=== PATIENT | female | born 1930 ===

== ENCOUNTER 2017-03-03 23:04 | Inpatient (IN) | payer MEDICARE ==
[~2017-03-03] VITALS: Ht 152.4 cm; Wt 54.4 kg
--- NOTE | ~2017-03-03 | DS ---
[place], [place] DISCHARGE SUMMARY NAME: KIRAN PEREZ UNIT #: [id number] ROOM: 311 DOCTOR: BELKYS ANGELES MD BIRTHDATE: [birth year] DOS: 03/11/2017 ADDENDUM CHIEF COMPLAINT: "Oh good morning doctor, do I get to go today?" SUMMARY OF THE VISIT: The patient was interviewed in the dining area where she sat waiting for breakfast. She smiled on approach as I entered and engaged readily in conversation, reporting to me that she feels ready for discharge and is hoping she is able to go to [facility]. When I did tell her that it would most likely be [facility], she still nodded in approval and stated that at this point in her life she feels that she is best to go into a long-term care facility as she does not feel that her needs are going to be able to be met any longer at home. She convincingly denies medication side effects and voices a readiness to leave today. MENTAL STATUS AT DISCHARGE: The patient is alert and oriented to person, place and approximate to time. Mood does seem to have trended towards improvement and she is more euthymic. There is no amy or hypomania. There is no longer paranoia present. Short term memory has gaps, otherwise she is intact. FINAL DIAGNOSES: Major depression, recurrent with psychotic features and Alzheimer's dementia. PLAN: The patient will be discharged to [facility]. Her prescriptions have been printed. I will follow her upon her admission to [facility]. BELKYS ANGELES MD CM:DISCHARG [id number] BELKYS ANGELES MD 03/12/17 0128 interface
--- NOTE | ~2017-03-03 | PR ---
[place], [place] PROGRESS NOTE [id number] UNIT #: [id number] ROOM: 311 DOCTOR: BELKYS ANGELES MD BIRTHDATE: [birth year] DOS: 03/08/2017 CHIEF COMPLAINT: "Oh doctor when do I get to go to [facility]." SUMMARY OF THE VISIT: The patient was interviewed in the dining area where she was sitting eating her breakfast. She still was somewhat fretful but very quickly calmed down and was much calmer and more redirectable than she has been for her entire stay. When I discussed with her the possibility of going to [facility], she questioned me as to where it was and whether she would still be able to ultimately go to [facility]. She did report that she is sleeping better and does feel more like eating this morning, which again is in craft contrast to her previous visits. She seems to be tolerating the current medication regimen well and denies any medication side effects. MENTAL STATUS: She is alert and oriented to person, place and very approximate to time. Mood is strongly trending towards euthymia. Affect is much more appropriate. There is no amy or hypomania. There are no overt auditory or visual hallucinations. No delusions, no paranoia. Short term memory is poor, intermediate, and long-term are relatively intact. PLAN: I will increase her Namenda to 5 mg b.i.d. augmenting the effectiveness of the Exelon patch. We will continue to explore possible placement then to [facility]. Ultimately per her request, she would like to go to [facility]. I will follow her whether she goes to either of those places upon discharge. BELKYS ANGELES MD CM:PNTRANS 0858 BLEKYS ANGELES MD 03/08/1740 interface
--- NOTE | ~2017-03-03 | PR ---
[place], [place] PROGRESS NOTE NAME[id number] UNIT #: [id number] ROOM: 310 DOCTOR: BELKYS ANGELES MD BIRTHDATE: [birth year] DOS: 03/06/2017 CHIEF COMPLAINT: "I need help. I can't eat." SUMMARY OF THE VISIT: The patient was interviewed once again in the dining area where she sat in front of her full plate of breakfast. She was overwhelmed by the food and stated she could not eat and needed assistance. She does continue to exhibit extreme depression with anxiety and requires a great deal of support and redirection, but she did respond to positive redirection well. She did report improved sleep last night, but still seems to be rather fretful and anxious as the day progresses. There is no sedation or somnolence noted from the medicines themselves. MENTAL STATUS: She is alert and oriented to person, place, not necessarily to time. Mood still is rather depressed with anxious overtones. There is no symptom suggestive of amy or hypomania. She is also not verbalizing any paranoia and in fact quite the opposite states that she is sorry for all the things she has done to her son and ccunadby-de-ilk and realizes that her thoughts were negative and erroneous. She does continue to have processing difficulty and short term memory issues. PLAN: I will maintain her current dose of Remeron at 15 mg at bedtime. I will increase her Exelon patch from 4.6 mg daily to 9.5 mg daily trying to maximize potential benefit. I will consider augmenting this with Namenda in the future. We will continue to engage her in individual and clay milieu activity. We will explore the possibility of placement at [facility] per her request and discharge then when psychiatrically stable. BELKYS ANGELES MD CM:PNTRANS [id number] BELKYS ANGELES MD 03/06/17 1035 interface
--- NOTE | ~2017-03-03 | DS ---
[place], [place] DISCHARGE SUMMARY NAME: [id number] UNIT #: [id number] ROOM: 311 DOCTOR: JOSELUIS THOMAS BIRTHDATE: [birth year] DOS: 03/09/2017 HISTORY OF PRESENT ILLNESS: This is an 86-year-old female who presented initially to [facility], brought there by her son due to increased paranoia, in particular felt that the son and tuioulds-jw-gcn were plotting to hurt her and take her money. Family states that similar behaviors have occurred in the past when she had a UTI. She was extremely labile, out of control, verbally and physically aggressive towards her son and threatening. She was transferred here for crisis stabilization to rule out organic factors, engage in individual and clay milieu therapy. PAST MEDICAL HISTORY: Includes dementia, glaucoma, major depression and possible bipolar disorder. HOSPITAL COURSE: Upon admission, we discontinued her Zyprexa and Depakote. 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 We started using Remeron to help with depression and sleep and start her on Exelon patch to help with her dementia. Medications were adjusted accordingly. Eventually, Namenda was added 5 mg b.i.d. currently. The goal is to eventually titrate her up to the full dose of 10 mg b.i.d. This will need to be done at the facility. She is on Remeron 15 mg at bedtime for depression. This low dose also has a histamine response, which helps with sleep and appetite stimulation. She is currently on Exelon patch 9.5 mg q.a.m. The goal would be to eventually titrate her up to the maximum dose of 13.3 mg every day and have this augmented with the Namenda as well. She is on vitamin E 400 international units q.a.m. and that is all medication smith. MENTAL STATUS: She is alert and oriented to person, place, approximate time. Mood is definitely euthymic. Affect is appropriate. She was aware that she was looking to be transferred today. There are no overt signs of auditory or visual hallucinations, delusions, paranoia, amy or hypomania. Short-term memory is poor. Long-term appears to be intact. PLAN: The patient is being discharged to be [facility]. Dr. Recinos has already printed her scripts. She would eventually like to be at [place] [facility], but my understanding is that there is no bed availability at this time. So plan is to be discharged again to [facility] in stable condition. Again, she is on Namenda 5 mg b.i.d. for dementia. The goal is for the facility to eventually titrate her up to the maximum dose of 10 mg b.i.d. Also for dementia she is on Exelon patch 9.5 mg q.a.m. This was increased on, looks like 01/06/2017. This should be eventually increased to 13.3 mg q.a.m. and she is on Remeron 15 mg at bedtime for major depression disorder, sleep and appetite stimulation. This is one of the facilities that Dr. Recinos and myself round at, so we can follow up with her as she is transferred into that facility or [facility]. The patient is being discharged in stable condition. ADDENDUM [place], [place] DISCHARGE SUMMARY NAME: KIRAN PEREZ UNIT #: [id number] ROOM: 311 DOCTOR: JOSELUIS THOMAS BIRTHDATE: [birth year] This is an addendum to my discharge summary on yesterday. SUMMARY OF VISIT: The patient was assessed in the dining room where she was waiting for breakfast this morning. She engaged in conversation. She immediately asked me why she was not discharged yesterday. I will have the social science professor follow up with her regarding this. MENTAL STATUS: Alert and oriented to person, place, approximate time. Mood is euthymic. She is frustrated. Affect is appropriate. No auditory or visual hallucinations, delusions, paranoia, amy or hypomania. Poor short-term memory. It appears that long-term memory is intact. PLAN: Again, the patient is to be discharged to [facility]. Dr. Recinos had printed off the scripts on Saturday. She did state that [facility], but understands that due to no bed availability [facility] is the next reasonable option. Please refer to my discharge plan under a plan for how to titrate her existing medications. JUAN FRANCISCO THOMAS CNP CM:JESS [id number] JOSELUIS THOMAS 03/11/17 0248 interface
--- NOTE | ~2017-03-03 | PR ---
[place], [place] PROGRESS NOTE [id number] UN[facility] #: [id number] ROOM: 310 DOCTOR: BELKYS ANGELES MD BIRTHDATE: [birth year] DOS: 03/07/2017 CHIEF COMPLAINT: "I am having trouble swallowing the meat loaf I ate at lunch, stuck in my throat all day long." SUMMARY OF THE VISIT: The patient was interviewed in the dining area. She was very anxious and fretful and called me over to talk to her repeatedly. She needs a great deal of support and redirection. She does appear very distraught and very anxious. She reports that she is having trouble swallowing, although she did pass an initial swallow eval yesterday. She is very fixated on her dentures not fitting properly and her mouth being very sore. She did not necessarily remember me from the previous visits and seemed very confused and disoriented. MENTAL STATUS: She is alert and oriented to person, place, but not necessarily time. Mood does still seem to be very depressed with anxious overtones. She is somatically preoccupied, but I see no hypomania or amy and likewise I see no overt auditory or visual hallucinations. She is not exhibiting the paranoia that was present upon admission. PLAN: I will go ahead and order a barium swallow to further followup her swallow issues. I will order her Burnett spray nasal mist for her complaint of a dry nose and also order zinc 220 mg orally in the morning to see if this improves her sense of taste. Because she is having an issue per her report of swallowing her pills, I will change her Remeron to the orally disintegrating tablet 15 mg at bedtime, so this aids in her ability to be compliant. I will also augment her Exelon patch with Namenda 5 mg daily to improve and maintain her ADLs, behaviors and cognition. At this point, we are looking at a possible admission to [facility]. Per her request, she would like to make this a permanent placement as she does not feel comfortable returning home with her family. BELKYS ANGELES MD CM:PNTRANS 0 BELKYS ANGELES MD 03/07/17 0930 interface
--- NOTE | ~2017-03-03 | WRIGHTHP ---
[place], [place] PATIENT HISTORY AND PHYSICAL EXAM NAME: KIRAN PEREZ UNIT #: [id number] ROOM: 310 DOCTOR: BELKYS ANGELES MD BIRTHDATE: [birth year] DOS: 03/05/2017 CHIEF COMPLAINT: "I wanted to go to [facility]. I cannot believe my son sent me here. I thought he was going to hurt me." HISTORY OF PRESENT ILLNESS: This is an 86-year-old white female who presented initially to [facility] emergency room. The patient was brought there by her son following increased paranoia. The patient felt that specifically her son and [id number]-wrb were plotting to hurt her and take her money. Similar behaviors have occurred when the patient has had a UTI. The patient though this time was extremely out of control and verbally and physically threatening to the son. The patient was eventually transferred here for crisis stabilization to rule out organic factors, to engage in individual and clay milieu activity and to find the least restrictive environment post-stabilization. PAST MEDICAL HISTORY: Remarkable for dementia, glaucoma, major depression and possible bipolar disorder. MENTAL STATUS: Upon admission, the patient is alert and oriented to person, place, and approximate to time. She does have some time gaps. Mood does seem to be depressed and she was on the verge of tears. She was very fretful and anxious. She did tend to be perseverative and did repeat herself frequently. She did openly admit to paranoia, but has the insight to be able to say that she realizes that this is not necessarily true. She does at times process slowly and does need to be reprompted. Short term memory does have gaps. DIAGNOSIS: Major depression, recurrent with psychotic features. Rule out Alzheimer dementia. PLAN: I will go ahead and discontinue her Zyprexa and Depakote. The patient had been on long-term Zyprexa and seems to have developed some mild tardive dyskinesia of her lips and tongue. At this point, I will utilize Remeron 15 mg at bedtime to treat the depressive component and start her on Exelon patch 4.6 mg a day. If clearing the UTI and treating the dementia works to decrease the accusatory behavior, I will attempt to avoid antipsychotics if at all possible. I will start her also on vitamin E 400 international units in the morning to attempt to help reverse some of the tardive dyskinesia. We will engage her in individual and clay milieu activity. We will also explore the possibility of placement at [facility] per her request. We will discharge then when psychiatrically stable. [place], [place] PATIENT HISTORY AND PHYSICAL EXAM NAME: KIRAN PEREZ UNIT #: [id number] ROOM: 310 DOCTOR: BELKYS ANGELES MD BIRTHDATE: [birth year] BELKYS ANGELES MD CM:HISPHYS:PATIENT HISTORY AND PHYSICAL EXAMINATION 4 53 BELKYS ANGELES MD 03/05/17 1052 interface
--- NOTE | ~2017-03-03 | PROC NOTE ---
[place], [place] PROCEDURE NOTE NAME: [id number] UNIT #: [id number] ROOM: 311 DOCTOR: ROCIO WALDEN BIRTHDATE: [birth year] DOS: MODIFIED BARIUM SWALLOW LOCATION: [address] [place] [address], room 310, bed 1. ORDERING PHYSICIAN: Dr. Recinos. RADIOLOGIST: Dr. Yanez. BACKGROUND INFORMATION: The patient an 86-year-old female who was seen for modified barium swallow. This test was ordered to view the pharyngeal phase of the swallow. This test was recommended following a bedside swallowing evaluation yesterday where the patient reported concern over meatloaf getting stuck in her throat during lunch yesterday. The patient was very anxious and upset over this and stated that she was not able to swallow anything solid no overt difficulty was displayed during bedside evaluation with the pureed food or thin liquids that she accepted. However, due to her continued feeling of globus, this study is being conducted. Medical history is significant for brief psychotic disorder, major depression, bipolar disorder, UTI, dementia and history of cancer of the genitourinary system. This patient receives a regular diet and thin liquids. Oral peripheral examination revealed presence of several bottom teeth only. Lingual, labial and buccal skills were within normal limits in terms of strength, range of motion and coordination. The patient was able to volitionally cough and swallow without difficulty. For this study, the patient was alert and cooperative, but displayed anxiety which increased during this encounter, encouragement and were provided throughout the study. METHODS AND MATERIALS USED FOR THE EXAM: The patient was positioned in the lateral plane and examination was viewed under fluoroscopy. The patient was presented with a variety of consistencies to assess swallowing skills including barium-coated cookie and bread presented in bite size pieces and thin liquid barium taken by cup. ORAL PHASE: Unremarkable. PHARYNGEAL PHASE: Unremarkable. ESOPHAGEAL PHASE: This phase of the swallow was not formally assessed during this examination. IMPRESSIONS AND RECOMMENDATIONS: Based upon assessment results, this 86-year-old patient presented with oral and pharyngeal swallowing skills that are within normal limits. Recommend the patient remain on regular diet and thin liquids. Follow up therapy is not warranted. Results and recommendations were shared with the patient and her nurse and they verbalized understanding. Thank you very much for this referral. Should you have any questions regarding this patient, please contact the speech pathologist at [phone]. [place], [place] PROCEDURE NOTE NAME: KIRAN PEREZ UNIT #: [id number] ROOM: [facility] DOCTOR: ROCIO WALDEN BIRTHDATE: [birth year] ROCIO WALDEN CM:PROCNOTE:PROCEDURE NOTE [id number] ROCIO WALDEN
[2017-03-04] MEDS ORDERED: BENADRYL ALLERG25 M5 PO (00:29)
[2017-03-04] MEDS ORDERED: TRAZODONE50 MG PO (00:30)
[2017-03-04] MEDS ORDERED: PRILOSEC20 M1 PO (00:31)
[2017-03-04] MEDS ORDERED: ZYPREXA10 M1 PO (00:32)
[2017-03-04] MEDS ORDERED: MACRODANTIN50 MG PO (00:33)
[2017-03-04] MEDS ORDERED: FLONASE ALLERG9.9 ML NAS (00:33)
[2017-03-04] MEDS ORDERED: TYLENOL325 M2 PO (00:34)
[2017-03-04 11:24] VITALS: BP 145/96
--- NOTE | 2017-03-04 11:30 | NUR ---
KIRAN PEREZ a 86 year old F admitted via ambulance from the ADMITTING as a emergency 72 hr. hold admission. Arrived on unit at 1130. ALLERGIES: .NKA Vital signs are: 98.5-69-18 145/96. The client signed the following forms with stated understanding: Authorization For The Release of Medical Information, Clothing List, Consent to Voluntary Admission and Hospitalization, Consent and Release Forms/Receipt of Rights, Acknowledgement of Advance Directive Information, Behavioral Health Consent Form, and Informed Consent of Medications. Admitted under the services of . PT IS LM SWIFT, PT BROGHT HER OWN CLOTHING, SHE HAS UPPER DENTURES, NO GLASSES, OR HEARING AIDS. PT HAS SOME INVOLUNTARY TONGUE MOVEMENT, DR. ANGELES AWARE. KARTHIK SIMONS,BELKYS. A search was conducted and hazardous articles were removed. Client was oriented to the unit. CONCEPCIÓN CROOKS
--- NOTE | 2017-03-04 12:15 | NUR ---
DR NG NOTIFIED OF NEW ADMSSION
[2017-03-04 12:56] LABS: BASO % 0.4 % (0.0-1.0); EOS # 0.1 10*3/uL (0.0-0.4); EOS % 1.3 % (1.0-4.0); HEMATOCRIT 40.2 % (37.0-47.0); HEMOGLOBIN 13.1 g/dl (12.0-16.0); LYMPH # 1.8 10*3/uL (1.3-4.4); MEAN CELL VOLUME 90.7 fl (81.0-99.0); MEAN CORPUSCULAR HGB 29.6 pg (27.0-31.0); MEAN CORPUSCULAR HGB CONC 32.6 g/dl (33.0-37.0); MEAN PLATELET VOLUME 10.4 fl (9.6-12.3); MONO # 0.5 10*3/uL (0.1-1.0); MONO % 6.5 % (3.0-9.0); NEUT # 4.8 10*3/uL (2.3-7.9); NEUT % 66.7 % (47.0-73.0); PLATELET COUNT AUTOMATED 199 10*3/uL (130-400); RED BLOOD COUNT 4.43 10*6/uL (4.10-5.10); RED CELL DISTRI WIDTH 12.9 % (0-14.5); WHITE BLOOD COUNT 7.1 10*3/uL (4.8-10.8)
--- NOTE | 2017-03-04 13:09 | NUR ---
DR CRAIG UP TO SEE PATIENT
[2017-03-04 13:13] LABS: ALBUMIN 3.5 gm/dl (3.1-4.5); ALKALINE PHOSPHATASE 40 U/L (45-117); BUN 13 mg/dl (7-24); CHLORIDE 103 mmol/L (98-107); CHOLESTEROL 212 mg/dL (<200); CREATININE 0.76 mg/dL (0.55-1.02); HDL CHOLESTEROL 71 mg/dl (40-60); LDL CHOLESTEROL 130 mg/dL (9-159); SGOT/AST 15 IU/L (3-35); SGPT/ALT 13 U/L (12-78); SODIUM 140 mmol/L (136-145); TRIGLYCERIDES 53 mg/dl (<150); VLDL CHOLESTEROL 11 mg/dL (6-40)
--- NOTE | 2017-03-04 13:14 | NUR ---
FAVIO DE LA CRUZ SIGNED THE PATIENT IN VOLUNTARY OVER THE PHONE CONSENT OTHER NURSE WITNESSED AND SIGNED CONSENT
[2017-03-04 13:19] LABS: VITAMIN D, 25-HYDROXY 35.7 ng/mL (30-100)
--- NOTE | 2017-03-04 15:09 | NUR ---
Social DIANA Patient did attend group as well as participated. Patient needed 1:1 and reported no issues during group
[2017-03-04 20:19] VITALS: BP 158/88
--- NOTE | 2017-03-04 21:35 | NUR ---
24 HR chart check completed.
--- NOTE | 2017-03-05 05:41 | NUR ---
PT HAS BEEN OBSERVED ON Q 15 MIN CHECKS & HAS SLEPT QUIETLY THROUGHOUT THE SHIFT PAST 2129.
[2017-03-05 08:00] VITALS: BP 143/78
--- NOTE | 2017-03-05 08:57 | NUR ---
TREATMENT TEAM WAS HELD WITH THE FOLLWOING: DR. ANGELES, RESIDENT, MEDICAL ROYAL, RNs, AT, SWs. DR. ANGELES STATED THAT PT WA WILLING TO GO TO [facility] FOR REHAB STAY. SW WILL SUBMIT PAASRR. DR. ANGELES SAID PT CAN SIGN IN.
--- NOTE | 2017-03-05 11:11 | NUR ---
Spoke with pt. son per pc who states that pt. has been in and out of facilities due to health and psychitric issues. He preferrs that referrals for d/c be sent to: [facility] and [facility]. He states that pt. has been to [facility] and [email or web address] and she is not to return there. Sw asked pt son to keep an open mind that it is possible that the facilities he stated may not take her due to her behaviors, and he states "let's start there". pt son will be in at 12:30pm for visitation and to bring his home clothes. .
--- NOTE | 2017-03-05 11:18 | NUR ---
Lisa faxed to [facility].
--- NOTE | 2017-03-05 12:00 | NUR ---
CARMENZA MARIN SHELTERED WORKSHOP EXECUTIVE DIRECTOR ON UNIT TO SEE PATIENT.
--- NOTE | 2017-03-05 13:33 | NUR ---
Exercise/Riddles&Games Patient did attend group this morning as well as participated. Patient showed no signs of hallucinations or voiced no suicidal ideations throughout group
--- NOTE | 2017-03-05 14:59 | NUR ---
Reminiscing and Puzzles Patient did attend group this afternoon as well as participated. Due to patient being "legaly Blind" she could see colors of the larger puzzle peices and assisst other patient on where she thought they were to go. Patient voiced no hallucinations or suicidal ideations while in group
--- NOTE | 2017-03-05 15:31 | NUR ---
PATIENT IS ALERT TO PERSON AND HANDS ON CARE. RESPIRATIONS ARE EASY, NON-LABORED ON ROOM AIR. LONG/SHORT TERM MEMORY DEIFICTS NOTED. MOOD IS DEPRESSED AND ANXIOUS AT TIMES. THOUGHT PROCESS IS CONFUSED. PREOCCUPIED WITH WORRYING ABOUT BREATHING. DENIES ANY HALLUCINATIONS, DELUSIONS, HI/SI OR PAIN. PATIENT INTERACTIVE WITH STAFF AND OTHER PATIENTS. PARTICIPATES IN GROUP ACTIVITIES. 1 PERSON ASSIST WITH ACTIVITIES OF DAILY LIVING. CONTINENT OF BOWEL AND BLADDER. 1 PERSON ASSIST WITH AMBULATTION DUE TO UNSTEADY GAIT. PATIENT HAS TARDIVE DYSKINESIA WITH PROTRUSION OF HER TONGUE. PATIENT COMPLAINING OF TONGUE PAIN DUE TO CONSTANT TONGUE MOVEMENT (LOOKS LIKE SHE IS CHEWING ON HER TONGUE) CARMENZA MARIN CNP NOTIFIED OF THIS. Q 15 MINUTE SAFETY CHECKS MAINTAINED. MEDICATION COMPLIANT WITH EDUCATION. MONITOR FOR HALLUCINATION AND REDIRECT NEEDED.
--- NOTE | 2017-03-05 16:11 | NUR ---
Shift chart check completed.
--- NOTE | 2017-03-05 17:14 | NUR ---
PATIENT CONSTANTLY RUBBING TONGUE ON BOTTOM TEETH CAUSING TONGUE TO HURT. PRN JEFF APPIED PRN FOR PAIN.
--- NOTE | 2017-03-05 17:23 | NUR ---
NABIL FROM [facility] ON UNIT TO COPLETE PASRR ASSESSMENT.
[2017-03-05 20:00] VITALS: BP 131/68
--- NOTE | 2017-03-05 20:13 | NUR ---
PATIENT COMPLAINT OF NOT BEING ABLE TO MOVE BOWELS. PATIENT AT THIS TIME REQUESTED THAT PRUNE JUICE BE GIVEN. PATIENT WITH NO EPISODES OF PARANOID BEHAVIOR. MEDICATIONS TAKEN WITHOUT DIFFICULTY
[2017-03-06 00:05] LABS: BILIRUBIN NEGATIVE (NEGATIVE); BLOOD 2+ (NEGATIVE); CLARITY CLOUDY (CLEAR); COLOR YELLOW (YELLOW); GLUCOSE NEGATIVE (NEGATIVE); KETONE NEGATIVE (NEGATIVE); LEUKO ESTERASE 3+ (NEGATIVE); NITRITE POSITIVE (NEGATIVE); UROBILINOGEN 0.2 E.U./dl (0.2-1.0)
[2017-03-06 00:33] LABS: BACTERIA 3+; WBC TNTC wbc/hpf (0-5)
--- NOTE | 2017-03-06 01:34 | NUR ---
24 HR chart check completed.
--- NOTE | 2017-03-06 06:25 | NUR ---
PT C/O MOUTH PAIN. MEDICATED WITH BENZOCAINE ORAL GEL AT THIS TIME.
--- NOTE | 2017-03-06 06:46 | NUR ---
DR. CHRISTOPHER UPDATED REGARDING URINALYSIS RESULT. NEW ORDER FOR BACTRIM DS BID X 1 WEEK
[2017-03-06 07:59] VITALS: BP 145/69
--- NOTE | 2017-03-06 09:17 | NUR ---
TREATMETN TEAM WAS HELD WITH THE FOLLOWING: DR. ANGELES, RNs, AT, SW. DR. ANGELES INCREASE PATCH. REFERRAL TO [facility]. SORE MOUTH.
--- NOTE | 2017-03-06 10:37 | NUR ---
Exercise and remenissing Patient attended group with appropriate participation. Patient compleated exercises part of group with prompting however required increased prompts to engage in remenissing. Patient only engaged when directly asked a question.
--- NOTE | 2017-03-06 11:16 | NUR ---
Patient was not available for OT evaluation this am as she was in groupt therapy session. OTR will attempt at a later time. Gloria Soler OTR/antonio
--- NOTE | 2017-03-06 13:34 | NUR ---
PHYSICAL THERAPY PAtient evaluated on 3, full evaluation to follow. Continue with PT as per plan of care with fall, unit three and acute debility precautions. Home with 26/11 family assist as prior and home health Rn and PT. Thank you for this referral. Poonam Gillette,PT
--- NOTE | 2017-03-06 13:49 | NUR ---
CARMENZA MARIN NOTIFIED OF PT'S COMPLAINT OF DIFFICULTY SWALLOWING AND FEELING LIKE SOMETHING IS CAUGHT IN HER THROAT, VITALS ARE WNL, PT AA&O, NO CHOKING OR DISTRESS NOTED. PT ABLE TO SWALLOW WATER WITHOUT DIFFICULTY.
--- NOTE | 2017-03-06 14:18 | NUR ---
Occupational Therapy evaluation completed this date on 3 with full eval to follow.Precautions include fall risk, 3N, disorientation, low complexity level 73219. Recommend OT per POC and return to home with son and 24 hr assist. Thank you for this referral. Gloria Soler OTR/L
--- NOTE | 2017-03-06 14:40 | NUR ---
Meaningful Me group Patient attended group with limited participation. Patient able to answer personal/coping questions when directly asked to them however did not actively join discussion. Patient focused on difficulty swallowing. Nursing aware.
--- NOTE | 2017-03-06 14:49 | NUR ---
SPEECH PATHOLOGY Bedside swallow eval. completed as per orders. Patient was alert and cooperative but displayed anxiety over her current status. This exam is being ordered due to patient experiencing a feeling of globus. Patient reported that she believes a piece of meatloaf is stuck in her throat, which occurred at lunch. During today's clinician evaluation, patient displayed limited dentition, having only several bottom teeth. Oral skills were WNL in terms of strength, ROM and coordination. Patient agreed to consume only thin liquid and pureed consistency. She would not attempt solid food for fear of it sticking. Patient displayed no overt difficulty with puree or thin liquid. She was recommended to continue to consume sips of water to help alleviate feeling of globus however if symptoms continue, physician may wish to consider an xray to r/o obstruction. Also recommend that patient consume soft, moist foods at this time. Follow up is recommended 1-2 visits to ensure safe, efficient mastication of solids and improvement of condition. Recommend safe swallow strategies to implement with po intake such as small bites/sips, alternating liquids and solids and upright seating for meals. Results and garret. were shared with patient and her nurse and they verbalized understanding. Refer to report in [employer] for further information. Thank you for this referral. ROCIO WALDEN MSCCC-SHRINK PIT SUPERVISOR
--- NOTE | 2017-03-06 17:44 | NUR ---
PATIENT COMPLAINT OF TONGUE PAIN. PRN ORAGEL APPLIED TO TONGUE AT THIS TIME.
--- NOTE | 2017-03-06 17:50 | NUR ---
PATIENT IS ALERT TO PERSON WITH CONFUSION, ABLE TO VOICE NEEDS. RESPIRATONS ARE EASY, NON LABORED ON ROOM AIR. MEMORY DEFICITS NOTED. THOUGHT PROCESS ISN PREOCCUPIED WITH CONCERNS OF SWALLOWING AND MOVING BOWEL. DENIES ANY HALLUCINATIONS, DELUSIONS, HI/SI. MOOD IS DRESSED, ANXIOUS AND SAD. 1 PERSON ASSIST WITH ACTIVITIES OF DAILY LIVING. CONTINENT OF BOWEL AND BLADDER. AMBULATES ON UNIT USIING WALKER. PATIENT IS COOPERATIVE AND INTERACTIVE WITH STAFF AND OTHER PATIENTS. ORAGEL NEEDED FOR TONGUE PAIN. PATIENT HAS CONSTANT MOTION ON TONGUE RUBBING AGAINST BOTTOM TEETH. PATIENT GIVEN PRUNE JUICE FOR DINNER FOR CONSTIPATION. BOWEL SOUND ARE ACTIVE X 4. Q 15 MINUTE SAFETY CHECKS. CONTINUE TO MONITOR FOR VOICED PARANIOD THOUGHT AND REDIRECT NEEDED. PROVIDED 1:1 WITH PATIENT TO EXPRESS EMOTIONS.
--- NOTE | 2017-03-06 18:35 | NUR ---
PRN MOM AND PRUNE JUICE EFFECTIVE WITH MEDIUM RESULT. PRN ORAGEL EFFECTIVE STATING "TONGUE FEELS BETTER".
[2017-03-06 20:00] VITALS: BP 132/62
--- NOTE | 2017-03-06 20:30 | NUR ---
PATIENT IN DINING AREA WITH COMPLAINT OF NOT BEING ABLE TO SWALLOW. THIS NURSE REMINDED PATIENT THAT SPEECH THERAPY WAS CONSULTED. PATIENT TOLD THIS NURSE THAT SPEECH THERAPIST SEEN HER AND STATED THAT NOTHING WAS WRONG WITH HER SWALLOWING. PATIENT THEN TEARFUL AND UPSET THAT SHE WAS NOT GOING TO BE ABLE TO GO TO BED. THIS NURSE AND NURSING STAFF ASSISTED PATIENT TO ROOM. PATIENT TOILETED AND LAYED IN BED WITH NO OTHER COMPLAINTS AT THIS TIME
--- NOTE | 2017-03-07 03:46 | NUR ---
24 HR chart check completed.
--- NOTE | 2017-03-07 06:53 | NUR ---
Q 15 MINUTE CHECKS MAINTAINED. SLEPT 1-2 HOURS THROUGHOUT THE NIGHT. UNABLE TO SLEEP DUE PATIENT YELLING IN HALLWAY. PATIENT CONTINUES ON BACTRIM DS FOR +UTI. NO COMPLAINTS OF DYSURIA
[2017-03-07 07:53] VITALS: BP 145/81
--- NOTE | 2017-03-07 08:26 | NUR ---
SPEECH PATHOLOGY Patient was seen for follow up session during breakfast meal. Patient was sitting upright in activity room, alert and feeding herself. Patient had a variety of food and liquids however all foods were of a pureed consistency. Patient displayed no overt difficulty with items taken. Clinician spoke with patient's nurse who reported that patient continues to c/o feeling that something is stuck in her throat. MBS is recommended and nurse was in agreement. Once orders are obtained, this procedure will be scheduled with full results and recommendations to follow. ROCIO WALDEN MSCCC-MUSIC AGENT
--- NOTE | 2017-03-07 09:04 | NUR ---
TREATMENT TEAM WAS HELD WITH THE FOLLOWING: DR. Pandey, RETAIL ACCOUNT EXECUTIVE. MEDICAL STUDENT, RNs, SWs, AT. bARIUM SWALLOWING TO BE DONE DUE TO MEDICINE STICKING IN THROAT. PENDING DISCHARGE FOR SATURDAY.
--- NOTE | 2017-03-07 09:55 | NUR ---
PHYSICAL THERAPY Mrs Hebert seen this AM 1:1 for her therapy treatment treatment. Pt was up in the day room at this time. Pt having acute debility precautions and needing repeat verbal cues for gait safety, walker and her act Ex. Transfer sit/stand and up on wheeled walker standing balance MIN A X 1. Gait with W/W 145' X 2, one sitting rest and MIN POST SPLITTER X 1, with cueing for safety. Working in gait balance which she didnot think she could do. Of gait backwards, right and left side stepping and 360 turn with MOD A X 1. End with act Ex to bilateral LE in sitting of marching, LAQ's, and ankle pumps with cueing for each Ex working to pt's tolerance. Pt up in the day room for her breakfast. JADE LUCAS HOT MILL TIN ROLLER.
--- NOTE | 2017-03-07 10:32 | NUR ---
SPEECH PATHOLOGY MBS completed as per orders. Patient was alert and cooperative but displayed anxiety which increased during this encounter. Encouragement and calming were provided througout the study. Patient was assessed with solid food and thin liquid. Oral and pharyngeal swallowing skills were WNL. Recommend she remain on regular diet and thin liquids. Follow up is not warranted. Results and garret. were shared with patient and nurse and they verbalized understanding. Dictated report to follow. Thank you for this referral. ROCIO WALDEN MSCCC-SPOOL SORTER
--- NOTE | 2017-03-07 11:01 | NUR ---
PADMA called [facility] for update on PASRR. The pasrr is currently under review with the state and is not approved at this point in time. Referrals faxed to: [facility], [facility], and [facility]. PADMA left vm for adm. baljit Cordoba. at [facility] in regards to pt. son stating that pt. had been apprpoved for respite care prior to this admission at [facility] and Padma would like a status update as to whether or not pt. can be admitted there now.
--- NOTE | 2017-03-07 11:16 | NUR ---
Conversation and Goals Patient was in attendence with limited participation. At one point patient was removed from the room for testing then returned. PT kept askin AC when she could get her medicine when in fact she had recieved it. PT was confused during group but voiced no hallucinations
--- NOTE | 2017-03-07 12:08 | NUR ---
[facility] rec'd call from [facility], they do not have a bed and they spoke with miguel angel, they cannot take pt's insurance.
--- NOTE | 2017-03-07 13:10 | NUR ---
[facility] called and left vm with adm. dir. Luis Arshad in regards to the referral that was sent to the facility today.
--- NOTE | 2017-03-07 13:16 | NUR ---
EFREM spoke with pt. son Parveen again. Let him know that [facility] not [facility] a bed, [place] left vm, son would prefer this but understands that she needs to go where there is a bed, he was made aware that there is a bed at [facility] and he states "I understand that she may need to go there". Efrem made Dr. rose aware of this and no pre-cert needed per [facility]. Need Pasrr results back before d/c.
--- NOTE | 2017-03-07 14:58 | NUR ---
Cande Harrington is compliant with medications. On 1:1 interaction with staff Cande expressed some complaints of having "meat stuck in my throat." Speech therapist in to see her and recommended a barium swallow test. Dr. Recinos was notified with orders received and barium swallow testing was completed with a negative result. Mood is depressed and she expresses some c/o feeling anxious related to being in the hospital. "I can't stay here." Support provided. Some confusion noted @ times. She does not exhibit any overt s/s of experiencing any internal stimuli. She voices some c/o soreness of her tongue due to involuntary mouth movements. Medicated with Anbesol to tongue @ 1258. States anbesol is effective. No paranoid ideas were expressed in this staff member's presence. Energy level appropriate to age and condition @ this time. Refer to [facility] flowsheet for specific monitoring.
--- NOTE | 2017-03-07 15:07 | NUR ---
Spoke with son, Parveen, to answer questions regarding prescribed medications and to discuss current condition, as well. bible worker, Griselda, also present and spoke with him regarding discharge planning.
[2017-03-07 19:44] VITALS: BP 126/59
--- NOTE | 2017-03-08 02:44 | NUR ---
24HR CHART CHECK COMPLETE
--- NOTE | 2017-03-08 03:33 | NUR ---
PT ORIENTED TO PERSON ONLY. AFFECT APPEARED FLAT. PT ASSESSED FOR SOMATIC COMPLAINTS, NON REPORTED AT THIS TIME. OFFERED EDUCATION REGARDING SOMATIC SYMPTOMS AND HOW THEY'RE OFTEN A MANIFESTATION OF AN EMOTIONAL NEED THAT REQUIRES ATTENTION. PT SOMEWHAT RECEPTIVE TO THIS EDUCATION. PT MEDICATION COMPLIANT. CONTINUE TO MONITOR FOR CHANGES IN BEHAVIOR. REFER TO FLOWSHEET FOR ADDITIONAL INFO.
--- NOTE | 2017-03-08 06:34 | NUR ---
PT SLEPT >8HRS WITH NO INTERRUPTIONS
[2017-03-08 08:27] VITALS: BP 151/82
[2017-03-08] MEDS ORDERED: RIVASTIGMINE1 EAC1 T (08:54)
[2017-03-08] MEDS ORDERED: ZINC SULFATE220 MG PO (08:54)
[2017-03-08] MEDS ORDERED: VITAMIN E400 UNI3 PO (08:54)
[2017-03-08] MEDS ORDERED: NAMENDA-5 PO (08:54)
[2017-03-08] MEDS ORDERED: MIRTAZAPINE15 M1 PO (08:54)
--- NOTE | 2017-03-08 09:47 | NUR ---
TREATMENT TEA WAS HELD WITH THE FOLLOWING: DR. ANGELES, MEDICAL STUDENT, RNs, SW, AT. WAITING FOR PRE-CERT TO GO TO [facility]. WAITING FOR PAS.
--- NOTE | 2017-03-08 11:00 | NUR ---
CARMENZA MARIN CNP OF HOSPITALIST GROUP HERE TO SEE PT AT THIS TIME, ANTIBIOTIC CHANGED ACCORDING TO URINE CULTURE AND SENSITIVITY RESULTS.
--- NOTE | 2017-03-08 11:00 | NUR ---
case management received a call from Nati at [facility], patient's stay is approved with last covered day 03/10/17 and next review 03/11/17
--- NOTE | 2017-03-08 11:15 | NUR ---
Exercise/Reminiscing/Funny Things Patient did attend group and did participate with prompting. Patient does not willingly participate,usually staring downward until she is adressed. When addressed patient will answer and participate for a very very short time. Patient voiced no delusions or paranoia while in group
--- NOTE | 2017-03-08 11:34 | NUR ---
PHYSICAL THERAPY Pt seen this AM 1:1 for her therapy treatment. All transfers were independent with verbal cueing. Gait with wheeled walker 160' X 2, CG X 1, no LOB one sitting rest. Working on gait balance with gait backwards, right and left side stepping, single leg stand with MOD GAME AUTHOR X 1. Pt back up in the day room and improving. JADE LUCAS ON SITE COORDINATOR.
--- NOTE | 2017-03-08 13:50 | NUR ---
PT ALERT AND ORIENTED TO PERSON, PLACE, APPROXIMATE TO TIME. ST/LT MEMORY DEFICITS NOTED. RESPIRATIONS EASY ON ROOM AIR. PT CALM AND COOPERATIVE. SPEECH IS SOFT, COHERENT, ABLE TO MAKE NEEDS KNOWN WITHOUT DIFFICULTY. PT DENIES HALLUCINATIONS, NO RESPONSE TO INTERNAL STIMULI NOTED. PT DENIES SI/HI. NO PARANOIA/DELUSIONS NOTED. PT STATES "NO. THAT FEAR IS GONE. THANK GOD, THAT IS HORRIBLE." PT ALSO STATES "THEY TOLD ME THAT I HAVE A BLADDER INFECTION AND THAT CAN SOMETIMES BRING THOSE THOUGHTS ON. I NEVER HEARD OF THAT BEFORE." EDUCATION PROVIDED TO PT ABOUT ATB THERAPY AND THE EFFECTS +UTI CAN HAVE ON EDERLY PTS, PT VERBALIZED UNDERSTANDING. MEDICATION COMPLIANT WITHOUT DIFFICULTY. MED EDUCATINO PROVIDED. PT AMBULATORY WITH WHEELED WALKER, STAND BY ASSIST FOR ADLS FOR SAFETY. FEEDS SELF. GOOD APPETITE WITH ADEQUATE FLUID INTAKE. NO DISTRESS NOTED. Q15 MIN SAFETY CHECKS MAINTAINED, FALL RISK PRECAUTIONS MAINTAINED, REFER TO [facility] FLOWSHEET FOR SPECIFIC MONITORING.
--- NOTE | 2017-03-08 14:32 | NUR ---
VILLA SPOKE WITH ELZA PIERSON. REINA NOT BACK YET. VILLA WILL CALL SOON IT IS RECEIVED.
--- NOTE | 2017-03-08 14:36 | NUR ---
CALL RECEIVED FROM INDRA PIERSON INQUIRING AOUT PT. PASRR IS NOT BACK YET. INDRA STATED THAT ONLY A HOSPITAL EXEMPTION IS NEEDED BY THEM. VILLA EXPLAINED THAT ON [facility] SW HAS TO FILE FULL PASRR WITH MENTAL HEALTH REVIEW. INDRA IS READY FOR PT SSON PASRR IS RECEIVED.
--- NOTE | 2017-03-08 15:24 | NUR ---
LEBRON Patient did attend group as well as participated. Patient stated "I cant see to play. Im legaly blind." X 3. This AC insisted i would help her. After starting the game patient expresses graditude for helping her play. Patient showed no signs of confusion or paraniod delusions while in group
--- NOTE | 2017-03-08 18:55 | NUR ---
SHIFT CHART CHECK COMPLETED.
[2017-03-08 20:32] VITALS: BP 115/53
--- NOTE | 2017-03-08 20:45 | NUR ---
PATIENT TEARFUL, UPSET AND SCARED REGARDING GOING TO THE BATHROOM. PATIENT STATING I NEED SOMEONE TO HOLD MY HAND OR I WILL FALL. THIS NURSE ASSISTED PATIENT TO BATHROOM AND ENCOURAGED PATIENT TO ATTEMPT TO SIT DOWN ON TOILET WITH USING RAIL ON WALL AND WALKER WITH THIS NURSE TO HELP AND STABILIZE WALKER WITH CONTACT GUARD ON PATIENT WELL. PATIENT SUCCESSFULLY SAT ON TOILET AND WAS PLEASED. PATIENT STATING THAT SHE DID NOT HAVE CONFIDENCE TO DO IT ON HER OWN, BUT FELT BETTER THAT SOMEONE WAS WITH HER. PATIENT CONTINUES ON MACROBID FOR +UTI. PATIENT WITH NO COMPLAINTS OF DYSURIA, BUT DID COMPLAIN ABOUT URINARY FREQUENCY. FLUIDS PROVIDED. MEDICATION COMPLIANT
--- NOTE | 2017-03-09 05:08 | NUR ---
24 HR chart check completed.
--- NOTE | 2017-03-09 06:07 | NUR ---
Q 15 MINUTE CHECKS MAINTAINED. SLEPT > 7 HOURS THROUGHOUT SHIFT. VOICES NO COMPLAINTS OF PAIN OR DISCOMFORT AT THIS TIME
[2017-03-09 08:22] VITALS: BP 149/82
--- NOTE | 2017-03-09 11:23 | NUR ---
Goals, remenissing and would you rather Patient present in group and participated appropriately. Patient able to set goal for the day and answer questions with directly asked. Patient able to agree on coping skills when discussed in group.
--- NOTE | 2017-03-09 14:12 | NUR ---
Mood is depressed with some anxiousness noted @ intervals. States that she "Asked the doctor if I could be released." She states that she feels "ready." Encouraged to discuss with the physician when he visits. Oriented to person and place, but not to time. Note to interact with peers selectively and also speaks with staff when approached. Voiced some c/o soreness of tongue and anbesol cream was applied @ 0938. States relief obtained. Requested and was assisted to make a telephone call to son, Parveen, this afternoon. Utilizes a walker to assist with ambulation. Refer to [facility] flowsheet for specific monitoring.
[2017-03-09 20:09] VITALS: BP 133/64
--- NOTE | 2017-03-09 21:53 | NUR ---
PT ORIENTED X2. PT MEDICATION COMPLIANT. PT DENIES SI/HI, DELUSIONAL THOUGHT PROCESSES, OR HALLUCINATIONS. PT VOICED NO SOMATIC COMPLIANTS. PT PLEASANT, SOCIALIZED WELL WITH PEERS. NURSE ENCOURAGED PT TO VERBALIZE EMOTIONS REGARDING THIS SHIFT. PT REPORTS A PLEASANT MOOD "JUST READY FOR BED." CONTINUE TO MONITOR FOR CHANGES IN BEHAVIOR. REFER TO FLOWSHEET FOR ADDITIONAL INFO.
--- NOTE | 2017-03-09 23:07 | NUR ---
24HR CHART CHECKS COMPLETE
--- NOTE | 2017-03-10 06:54 | NUR ---
PT SLEPT >8HRS, WITH NO INTERRUPTIONS
[2017-03-10 07:37] VITALS: BP 105/56
--- NOTE | 2017-03-10 15:33 | NUR ---
Mood is depressed with anxiety level generally low most of the day, although she has expressed some anxiety related mouth and throat issues. Support and education provided. Cande Harrington is compliant with prescribed medications. No confusion has been noted thus far. She does report some problems with her memory @ times. She is also expressing a desire for discharge and states that she wants to go to a [facility], "because I don't want to put my son through that again. I had that delusional thinking." Cande Harrington also was verbal regarding her feelings. States that she will not harm herself, but feels "ready for God to take me." She then was verbal regarding her life and reports that she "had a wonderful life. 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 They are all doing well." Attempted to discuss options for her related to social activities and hobbies that she could pursue, however, she was not interested. Appetite is fair to good. Refer to [facility] flowsheet for specific monitoring.
[2017-03-10 20:11] VITALS: BP 124/56
--- NOTE | 2017-03-11 01:27 | NUR ---
24 HR chart check completed.
--- NOTE | 2017-03-11 07:12 | NUR ---
PT PLESANT AND COOPERATIVE, MED COMPLIANT VERBALIZED UNDESTANDING OF MED EDUCATION. 1-1 PROVIDED BRIGHTER MOOD, VOICED NO SOMATIC DELUSIONS. EXPRESSING DESIRE TO GET TO A FACILITY THAT SHE DOES NOT WANT TO BE A BURDEN TO HER FAMILY AND NEEDS HER HAIR SET. FALL PERCAUTIONS MAINTAINED, YELLOW SOCKS AND SINAGE, BODY AND BED ALARM INTACT AND IN PLACE, Q 15 MIN FOR SAFETY. SLEPT 8 HOURS WITH OUT INTURRUPTION.
[2017-03-11 08:10] VITALS: BP 124/72
--- NOTE | 2017-03-11 08:33 | NUR ---
TREATMENT TEAM WAS HELD WITH THE FOLLOWING: DR. ANGELES, RNs, AT, SWs. PASRR NOT BACK YET. SOON PASRR BACK PT CAN BE DISCHARGED.
--- NOTE | 2017-03-11 10:08 | NUR ---
PHYSICAL THERAPY Cande Harrington seen this AM 1:1 for her therapy treatment and is improving. Pt was up in the day room. All transfers were CG X 1, no LOB. Gait with wheeled walker 180' X 2, with sitting rest no LOB and little cueing for gait safety. Working in gait balance with gait backwards right and left side stepping and 360 turn with MIN SPD TECH X 1, cueing for each. End with going over act Ex to bilateral LE of marching, LAQ's ankle pumps X 20 reps each, Pt back up in the day room. JADE LUCAS FORENSIC PHOTOGRAPHER.
[2017-03-11] MEDS ORDERED: NITROFURANTOIN100 M9 PO (10:50)
--- NOTE | 2017-03-11 10:59 | NUR ---
[facility]. [facility] at 2pm. pt poa, son, Caleb notified. Notified, community worker, Emmie in regards to d/c. Nurse will call nurse to nurse.
--- NOTE | 2017-03-11 11:02 | NUR ---
DR. KING ON UNIT TO SEE PATIENT AND AWARE OF PATIENT'S DISCHARGE FOR TODAY.
--- NOTE | 2017-03-11 11:20 | NUR ---
Goals/Exercise/I am grateful for.... Patient did attend group this morning as well as participated. Patient participated without being prompted to do so. Patient showed no confusion or expressed any paranoid thoughts while in group
--- NOTE | 2017-03-11 11:45 | NUR ---
RESULTS OF PASRR RECEIVED AND PT APPROVED FOR DETENTION STAY. COPY ON CHART.
--- NOTE | 2017-03-11 13:26 | NUR ---
NURSE TO NURSE PROVIDED TO CAROLINE PIERSON FOR PATIENT'S DISCHARGE. SPOKE WITH JG AT [facility].
--- NOTE | 2017-03-11 14:50 | NUR ---
PATIENT READY FOR DISCHARGE,AMBULANCE SERVICE (2) ASSIST PRESENT. PATIENT ASSISTED TO [facility]. ALL BELONGING AND DISCHARGE PAPERWORK SENT WITH PATIENT. PATIENT OFF UNIT WITH AMBULANCE SERVICE AT THIS TIME AND DISCHARGED.
--- NOTE | 2017-03-11 15:22 | NUR ---
PHYSICAL THERAPY CO-SIGN I approve of the Phyical Therapy notes written above. DARIEN COTTRELL PT
--- NOTE | 2017-03-11 16:13 | NUR ---
SENIOR CYBER SECURITY ANALYST NOTE: DISCHARGE PACKET MAILED TO [facility] 03/11/17
== END 2017-03-11 14:53 | disposition other institution (70) | DRG 56 ==
LOC: 3N 23:04
PROVIDERS: Registered Nurse; ADMIT Psychiatry & Neurology Psychiatry
PROC: BD11YZZ Fluoroscopy of Esophagus using Other Contrast (ICD-10-PCS; principal; 2017-03-04)
PROC: BD1BYZZ Fluoroscopy of Mouth/Oropharynx using Other Contrast (ICD-10-PCS; principal; 2017-03-04)
DX: G30.9 Alzheimer's disease, unspecified (principal); G93.41 Metabolic encephalopathy; F33.3 Major depressive disorder, recurrent, severe with psychotic symptoms; F02.81 Dementia in other diseases classified elsewhere, unspecified severity, with behavioral disturbance; N39.0 Urinary tract infection, site not specified; R73.03 Prediabetes; H40.9 Unspecified glaucoma; Z85.50 Personal history of malignant neoplasm of unspecified urinary tract organ; Z90.710 Acquired absence of both cervix and uterus; Z80.9 Family history of malignant neoplasm, unspecified; Z79.899 Other long term (current) drug therapy

== ENCOUNTER 2017-04-23 14:10 | Inpatient (IN) | payer MEDICARE ==
[~2017-04-23] VITALS: Ht 152.4 cm; Wt 54.4 kg
--- NOTE | ~2017-04-23 | WRIGHTHP ---
[place], [place] PATIENT HISTORY AND PHYSICAL EXAM [id number] UN[facility] #: [id number] ROOM: 314 DOCTOR: BELKYS RECINOS MD BIRTHDATE: [birth year] DOS: 04/24/2017 INITIAL PSYCHIATRIC EVALUATION. CHIEF COMPLAINT: "Oh there you are Dr. Recinos, I have to tell you what has been happening at [facility]." HISTORY OF PRESENT ILLNESS: This is an 86-year-old white female who is known to me from a previous admission here to the [facility] as well as her stay at [facility] in [place], [place]. The patient is admitted now to the [facility] for increased depression with increased mood lability and agitation. Of note, the patient has been actively refusing to eat and actively been refusing to take all of her medications, both psychiatric and medical. During this period of time, she has had poor sleep and appetite, energy, anhedonia, hopeless, helpless feelings and inability to cope. She has experienced significant mood swings and has lashed out at staff verbally in a profane driven stream of speech. She is admitted now to rule out any organic factors to attempt to restabilize on medication with the ultimate plan to return to the least restrictive environment when psychiatrically stable. PAST MEDICAL HISTORY: Significant for a long history of bipolar disorder, dementia, glaucoma, cancer of the genitourinary system and prediabetes. MENTAL STATUS EXAMINATION: The patient is alert and oriented with time gaps. She does appear somewhat depressed and anxious and is somatically fixated on her bowels. There was no mood lability noted at this time, although she was somewhat pressured in her speech and was somewhat circumstantial overall in her delivery of information. There were no overt auditory or visual hallucinations. No delusions, no paranoia. Short term memory had mild gaps, otherwise she was intact. DIAGNOSES: Bipolar type 1, mixed, and Alzheimer's dementia. PLAN: I will discontinue her Klonopin in lieu of hydroxyzine 25 mg 3 times daily to decrease some of her anxiety. At this point, I will maintain her on the Remeron 15 mg at bedtime and consider adding either Depakote and/or an antipsychotic. Maintain her on Exelon and the Namenda, adjusting these accordingly; engage in individual and clay milieu activity with the plan then to discharge to the least restrictive environment when psychiatrically stable. [place], [place] PATIENT HISTORY AND PHYSICAL EXAM NAME: KIRAN PEREZ UNIT #: [id number] ROOM: [facility] DOCTOR: BELKYS RECINOS MD BIRTHDATE: [birth year] BELKYS RECINOS MD CM:HISPHYS:PATIENT HISTORY AND PHYSICAL EXAMINATION [id number] BELKYS RECINOS MD 04/24/17 1052 interface
--- NOTE | ~2017-04-23 | PR ---
[place], [place] PROGRESS NOTE NAME: KIRAN PEREZ UNIT #: [id number] ROOM: 314 DOCTOR: YISEL DELEON,MY BIRTHDATE: [birth year] DOS: 04/25/2017 ROOM NUMBER: [id number]. CHIEF COMPLAINT: "They crushed them and there is hardly any left." SUMMARY OF THE VISIT: The patient was interviewed in a hallway as she sat in a wheelchair. The patient said she does not want to stay here and wants to be discharged because she does not like the food here and that she does not get enough medications because "they crush them all" and "I hardly see any left." Said she wants to go home with her son and his , and that his house is currently undergoing remodeling. MENTAL STATUS: The patient is alert and oriented with some time gaps. She does appear somewhat depressed and anxious. She is fixated on not getting enough medications here. She was somewhat pressured in her speech. There were no overt delusions or hallucinations. Short term memory is intact with some gaps. PLAN: We will increase Namenda 5 mg q.a.m. and 10 mg at bedtime. Would discontinue Vistaril. Will also add Zyprexa 2.5 mg b.i.d. Continue her on Exelon patch. We will continue to engage the patient in individual and clay milieu activity with the ultimate plan is to discharge the patient to a least restrictive environment. MY YISEL, DO BELKYS ANGELES MD CM:ADRIANNA [id number] RUBEN MORILLO DO 04/30/17 0743 interface
--- NOTE | ~2017-04-23 | PR ---
[place], [place] PROGRESS NOTE [id number] UNIT #: [id number] ROOM: 314 DOCTOR: BELKYS ANGELES MD BIRTHDATE: [birth year] DOS: 04/30/2017 CHIEF COMPLAINT: "I don't like that SolTab pill, I was taking the regular pill fine." SUMMARY OF THE VISIT: The patient was interviewed as she wheeled herself into the group therapy room. She reported that she was cold and that room was one of the warmer rooms. She asked if I can switch her off the Remeron SolTab as she was taking the Remeron fine and did not like how the SolTab burned her mouth per her report. She also is very fixated on not returning back to [facility] stating that she hopes to be able to go home with her son. I redirected her to state that this was not necessarily an option that I knew of and that we would have to explore all possible options. She nodded in agreement. MENTAL STATUS: She is alert and oriented with significant time gaps. Mood does seem to be trending towards more euthymia. Affect is more appropriate. There are no symptoms of hypomania or amy. There are no overt auditory or visual hallucinations. No delusions, no paranoia. Short term memory is poor, otherwise she is intact. PLAN: I will renew her p.r.n. Ativan in case she requires intervention and change her Remeron SolTab back to the regular Remeron 15 mg at bedtime, continue to engage in individual and clay milieu activities with the plan then to return to the least restrictive environment when psychiatrically stable. BELKYS ANGELES MD CM:PNTRANS [id number] BELKYS ANGELES MD 04/30/17 1257 interface
--- NOTE | ~2017-04-23 | PR ---
[place], [place] PROGRESS NOTE NAME: KIRAN PEREZ UNIT #: [id number] ROOM: 314 DOCTOR: JOCE SIMONS,ANTONY BIRTHDATE: [birth year] DOS: CHIEF COMPLAINT: "I feel anxious." SUBJECTIVE: The patient is seen today sitting in ordoñez in wheelchair. She did engage in conversation, but she is not in a good mood, multiple complaints about food. She did not like the cooking, water does not taste good. She has been eating a little. She does drink juices, takes her medicines, but does not like to take medicines either. MENTAL STATUS EXAMINATION: The patient is awake, alert, oriented to person, place, but not time. Fair eye contact, complaining about everything, not in a good mood. No amy or hypomania. No overt psychosis at present. PLAN: Continue pursuing her to take medicines and keep up with the nutrition and try and engage her in clay milieu as she is more stable. ANTONY HOBSON MD CM:PNTRANS [id number] ANTONY HOBSON MD 04/27/17 1623 interface
--- NOTE | ~2017-04-23 | PR ---
[place], [place] PROGRESS NOTE NAME: [id number] UNIT #: [id number] ROOM: 310 DOCTOR: YISEL DELEON,MY BIRTHDATE: [birth year] DOS: 05/01/2017 CHIEF COMPLAINT: "I guess I will go to another place." SUMMARY OF THE VISIT: The patient was interviewed in the dining area. She sat in a wheelchair having breakfast. The patient said she does not wish to go back to [facility], but rather a different facility, said to Dr. Angeles, "you took away my medication." When explained to the patient that Remeron SolTab was discontinued because she complained that it burned her mouth. The patient then nodded in agreement. Denies harmful thoughts for others. The patient slept well last night. According to staff, patient asked her to pray with her that she would not wake up and "God would take her." MENTAL STATUS: The patient is alert and oriented with significant time gaps. She does appear depressed. There were no overt delusions or auditory or visual hallucinations. Short term memory is poor. PLAN: Continue Ativan p.r.n. in case she needs intervention. We will also continue Remeron 15 mg at bedtime, Namenda 10 mg b.i.d. and Zyprexa 2.5 mg b.i.d. as well as Exelon patch 6 mg q. 12 hours. We will attempt to engage the patient in individual and clay milieu activity. MY YISEL, DO BELKYS ANGELES MD CM:PNTRANS [id number] MY YISEL DO 05/01/17 1615 interface
--- NOTE | ~2017-04-23 | PR ---
[place], [place] PROGRESS NOTE NAME: KIRAN PEREZ UNIT #: [id number] ROOM: 314 DOCTOR: JOCE SIMONS,ANTONY BIRTHDATE: [birth year] DOS: CHIEF COMPLAINT: "I don't like this food." SUBJECTIVE: The patient is seen today in dining area and later in the hallway. She is still not in good mood, states that she does not like this food, waterish, smelly as well and she has not been eating her meals. As per nurses' report, she has been taking her medicines with resistance. She did sleep okay last night and she has been coming out of her room, sitting in the dining area and talking to other patients. MENTAL STATUS EXAMINATION: The patient is awake, alert, oriented to person, place, but not time. Fair eye contact, but not in a good mood with blunted affect. No amy or hypomania and no overt psychosis at present. PLAN: We shall continue pursuing her to take her medicines and eat her meals and drink to keep up with her nutrition, also shall increase the olanzapine to 2.5 mg b.i.d., continue rest of the medicines and try and engage her in clay milieu as she is more stable. ANTONY HOBSON MD CM:PNTRANS [id number] ANTONY HOBSON MD 04/28/17 1344 interface
--- NOTE | ~2017-04-23 | PR ---
[place], [place] PROGRESS NOTE NAME: KIRAN PEREZ UNIT #: [id number] ROOM: 314 DOCTOR: JOCE SIMONS,ANTONY BIRTHDATE: [birth year] DOS: CHIEF COMPLAINT: "I did drink Boost and took my medicines." SUBJECTIVE: The patient is seen this morning, sitting in wheelchair in hallway. She did engage in short conversation, stating that she did drink Boost and took her medicines. She is still very short and gets angry easy. She still is not eating her meals, though she has been drinking energy drinks. MENTAL STATUS EXAMINATION: The patient is awake, alert, oriented to person, place, but not time, broken eye contact. Mood still very irritable, flat affect. No amy or hypomania and no evidence of psychosis at present. PLAN: Not much has changed since yesterday. We shall continue her current medicines, continue her care and try and engage her in clay milieu as she is more stable. ANTONY HOBSON MD CM:PNTRANS [id number] ANTONY HOBSON MD 04/29/17 1034 interface
--- NOTE | ~2017-04-23 | DS ---
[place], [place] DISCHARGE SUMMARY [id number] UNIT #: [id number] ROOM: 310 DOCTOR: BELKYS RECINOS MD BIRTHDATE: [birth year] DOS: 05/02/2017 CHIEF COMPLAINT: "Oh there you are Dr. Recinos, I have to tell you what has been happening at [facility]." HISTORY OF PRESENT ILLNESS: This is an 86-year-old white female who is known to me from previous admissions here to the [facility] unit as well as her stay at [facility] in [place], [place]. The patient is now admitted to the [facility] for increased depression with increased mood lability and agitation. Of note, she has been actively refusing to eat and refusing to take all of her medications, both psychiatric and medical medications. During this period of time, she has noted poor sleep and appetite, lack of energy, anhedonia, hopeless, helpless feelings and inability to cope. She has experienced significant mood swings and has lashed out at staff verbally in a profane driven stream of speech. She is admitted now to rule out organic factors and attempt to restabilize on medication with the ultimate plan to return to the least restrictive environment when psychiatrically stable. PAST MEDICAL HISTORY: Remarkable for a long history of bipolar disorder as well as a history of dementia, glaucoma, cancer of the genitourinary system and prediabetes. SUMMARY OF HOSPITAL COURSE: The patient was admitted to the unit where she was maintained on Remeron 15 mg at bedtime along with the Exelon patch and the Namenda that she had been on previously. Her Klonopin was discontinued in lieu of hydroxyzine 25 mg 3 times daily as a nonaddicting alternative and also because Klonopin could be causing a paradoxical response. Zyprexa 2.5 mg twice daily was added to augment the effectiveness of the Remeron and to stabilize her mood while also stimulating appetite. This had a significant effect upon her as she became much more compliant and pleasant. She continued to voice, however, displeasure with [facility] and requested that we find her an alternative placement if not returning back to her son's home that she stated was being fixed up for her. At this point, it was felt that a placement into another long-term care facility was warranted and [facility] in [place] was found as an alternative to [facility]. The patient tolerated the combination of the Remeron, the Zyprexa, the Namenda, the Exelon and the hydroxyzine well. She did not exhibit sedation, somnolence, extrapyramidal symptoms or tardive dyskinesia. She voiced a positive plan for the future and she herself denied medication side effects. She was admitted then to [facility] on 05/02 where I will follow her upon her admission there. MENTAL STATUS AT DISCHARGE: The patient was alert and oriented to person, place, and approximate to time. Mood was strongly trending towards euthymia. Affect was much more appropriate. There was no symptom suggestive of amy or hypomania, likewise there were no auditory or visual hallucinations. No delusions, no paranoia. Short term memory had mild gaps, otherwise she was intact. FINAL DIAGNOSES: Bipolar type 1, depressed and Alzheimer's dementia. [place], [place] DISCHARGE SUMMARY NAME: KIRAN PEREZ UNIT #: [id number] ROOM: 310 DOCTOR: BELKYS RECINOS MD BIRTHDATE: [birth year] PLAN: All of her prescriptions have been printed and will be sent with her. She will be admitted to [facility]. I will follow her there psychiatrically. BELKYS RECINOS MD CM:DISCHBRITTON [id number] BELKYS RECINOS MD 05/02/17 0954 interface
--- NOTE | ~2017-04-23 | PR ---
[place], [place] PROGRESS NOTE NAME: KIRAN PEREZ UNIT #: [id number] ROOM: 314 DOCTOR: BELKYS RECINOS MD BIRTHDATE: [birth year] DOS: 04/26/2017 CHIEF COMPLAINT: "Oh doctor I need to go home with my son. I think he is going to have the place fixed up." SUMMARY OF THE VISIT: The patient was interviewed in the dining area, at first she did not recognize me as her doctor and asked me point blank if I was Dr. Recinos. Later, she nodded in approval and stated that she is feeling better. She does not want to go back to [facility] but instead states that she knows for a fact that her son has fixed up his house and is anxiously awaiting for her to return there, whether this has any fact or not, I do not know. She is more pleasant. She has been more compliant. She has been taking her medications as directed and she has been eating better. MENTAL STATUS: She is alert and oriented to person, place, but not time. Mood does seem to be strongly trending towards euthymia and affect is much more appropriate. There is no amy or hypomania. There are no overt auditory or visual hallucinations. No delusions, no paranoia. She does have poor short term memory. PLAN: I will maximize the dose of the Namenda, bringing it to 10 mg twice daily to augment the effectiveness of the Exelon at 6 mg twice daily. We will continue to engage in individual and clay milieu activity with the ultimate plan to return to the least restrictive environment when psychiatrically stable. BELKYS RECINOS MD CM:PNTRANS 0 BELKYS RECINOS MD 04/26/1737 interface
[~2017-04-23 14:10] MED LIST: BENADRYL ALLERG25 M5 PO; FLONASE ALLERG9.9 ML NAS; MACRODANTIN50 MG PO; MIRTAZAPINE15 M1 PO; NAMENDA-5 PO; NITROFURANTOIN100 M9 PO; PRILOSEC20 M1 PO; RIVASTIGMINE1 EAC1 T; TRAZODONE50 MG PO; TYLENOL325 M2 PO; VITAMIN E400 UNI3 PO; ZINC SULFATE220 MG PO; ZYPREXA10 M1 PO
[2017-04-23] MEDS ORDERED: MACRODANTIN100 M1 PO (15:52)
[2017-04-23] MEDS ORDERED: RIVASTIGMINE TAR6 M1 PO (15:54)
[2017-04-23] MEDS ORDERED: REMERON15 M2 PO (15:55)
[2017-04-23] MEDS ORDERED: Zofran4 MG SL (15:56)
[2017-04-23 16:59] VITALS: BP 99/70
[2017-04-23 19:05] LABS: BILIRUBIN 1+ (NEGATIVE); BLOOD TRACE-LYSED (NEGATIVE); CLARITY SL CLOUDY (CLEAR); COLOR YELLOW (YELLOW); GLUCOSE NEGATIVE (NEGATIVE); KETONE 3+ (NEGATIVE); LEUKO ESTERASE 3+ (NEGATIVE); NITRITE NEGATIVE (NEGATIVE); PH 5.5 (5.0-9.0)
[2017-04-23 19:16] LABS: WBC TNTC wbc/hpf (0-5)
[2017-04-23 20:26] VITALS: BP 108/66
[2017-04-24 07:19] LABS: BASO # 0.1 10*3/uL (0.0-0.1); EOS # 0.2 10*3/uL (0.0-0.4); EOS % 2.7 % (1.0-4.0); HEMATOCRIT 40.6 % (37.0-47.0); HEMOGLOBIN 13.2 g/dl (12.0-16.0); LYMPH # 2.8 10*3/uL (1.3-4.4); LYMPH % 45.2 % (27.0-41.0); MEAN CELL VOLUME 91.4 fl (81.0-99.0); MEAN CORPUSCULAR HGB 29.7 pg (27.0-31.0); MEAN CORPUSCULAR HGB CONC 32.5 g/dl (33.0-37.0); MEAN PLATELET VOLUME 10.5 fl (9.6-12.3); MONO # 0.6 10*3/uL (0.1-1.0); MONO % 9.6 % (3.0-9.0); NEUT # 2.6 10*3/uL (2.3-7.9); NEUT % 41.3 % (47.0-73.0); PLATELET COUNT AUTOMATED 229 10*3/uL (130-400); RED BLOOD COUNT 4.44 10*6/uL (4.10-5.10); RED CELL DISTRI WIDTH 13.4 % (0-14.5); WHITE BLOOD COUNT 6.3 10*3/uL (4.8-10.8)
[2017-04-24 07:49] LABS: CHLORIDE 103 mmol/L (98-107); POTASSIUM 3.7 mmol/L (3.5-5.1); SODIUM 140 mmol/L (136-145)
[2017-04-24 07:52] VITALS: BP 120/68
[2017-04-24 08:08] LABS: ALBUMIN 3.5 gm/dl (3.1-4.5); ALKALINE PHOSPHATASE 41 U/L (45-117); BUN 20 mg/dl (7-24); CHOLESTEROL 194 mg/dL (<200); CREATININE 0.66 mg/dL (0.55-1.02); HDL CHOLESTEROL 55 mg/dl (40-60); LDL CHOLESTEROL 118 mg/dL (9-159); SGOT/AST 24 IU/L (3-35); SGPT/ALT 23 U/L (12-78); THYROID STIM HORMONE (HS) 0.968 uIU/ml (0.358-4.75); TOTAL PROTEIN 7.2 gm/dL (6.4-8.2); TRIGLYCERIDES 104 mg/dl (<150); VLDL CHOLESTEROL 21 mg/dL (6-40)
[2017-04-24 08:55] LABS: VITAMIN D, 25-HYDROXY 39.5 ng/mL (30-100)
[2017-04-24 20:00] VITALS: BP 117/68
[2017-04-25 08:00] VITALS: BP 157/71
[2017-04-25 20:00] VITALS: BP 115/62
[2017-04-26 08:14] VITALS: BP 117/64
[2017-04-26 20:00] VITALS: BP 126/58
[2017-04-27 07:59] VITALS: BP 121/62
[2017-04-27 20:40] VITALS: BP 128/75
[2017-04-28 05:30] LABS: ALBUMIN 3.2 gm/dl (3.1-4.5); ALKALINE PHOSPHATASE 36 U/L (45-117); BUN 19 mg/dl (7-24); CHLORIDE 105 mmol/L (98-107); POTASSIUM 3.7 mmol/L (3.5-5.1); SGOT/AST 17 IU/L (3-35); SGPT/ALT 19 U/L (12-78); SODIUM 142 mmol/L (136-145); TOTAL PROTEIN 6.5 gm/dL (6.4-8.2)
[2017-04-28 05:55] LABS: BASO % 0.7 % (0.0-1.0); EOS # 0.2 10*3/uL (0.0-0.4); EOS % 3.4 % (1.0-4.0); HEMATOCRIT 38.9 % (37.0-47.0); HEMOGLOBIN 12.6 g/dl (12.0-16.0); LYMPH # 2.5 10*3/uL (1.3-4.4); MEAN CELL VOLUME 92.2 fl (81.0-99.0); MEAN CORPUSCULAR HGB 29.9 pg (27.0-31.0); MEAN CORPUSCULAR HGB CONC 32.4 g/dl (33.0-37.0); MEAN PLATELET VOLUME 11.3 fl (9.6-12.3); MONO # 0.6 10*3/uL (0.1-1.0); MONO % 8.9 % (3.0-9.0); NEUT # 2.8 10*3/uL (2.3-7.9); NEUT % 45.7 % (47.0-73.0); PLATELET COUNT AUTOMATED 201 10*3/uL (130-400); RED BLOOD COUNT 4.22 10*6/uL (4.10-5.10); RED CELL DISTRI WIDTH 13.8 % (0-14.5); WHITE BLOOD COUNT 6.2 10*3/uL (4.8-10.8)
[2017-04-28 08:00] VITALS: BP 104/55
[2017-04-28 20:16] VITALS: BP 106/74
[2017-04-29 08:10] VITALS: BP 110/65
[2017-04-29 20:00] VITALS: BP 131/64
[2017-04-30 08:21] VITALS: BP 128/75
[2017-04-30 20:06] VITALS: BP 106/53
[2017-05-01 08:32] VITALS: BP 116/71
[2017-05-01 20:00] VITALS: BP 141/52
[2017-05-02 07:52] VITALS: BP 130/55
[2017-05-02] MEDS ORDERED: VITAMIN E400 UNI3 PO (09:17)
[2017-05-02] MEDS ORDERED: ZINC SULFATE220 MG PO (09:17)
[2017-05-02] MEDS ORDERED: MIRTAZAPINE15 M2 PO (09:17)
[2017-05-02] MEDS ORDERED: RIVASTIGMINE TAR3 M1 PO (09:17)
[2017-05-02] MEDS ORDERED: MEMANTINE HCL10 MG PO (09:17)
[2017-05-02] MEDS ORDERED: ZYPREXA2.5 MG PO (09:17)
== END 2017-05-02 19:53 | disposition other institution (70) | DRG 885 ==
LOC: 3N 14:10
PROVIDERS: Emergency Medicine; Psychiatry & Neurology Psychiatry
DX: F31.60 Bipolar disorder, current episode mixed, unspecified (principal); G30.9 Alzheimer's disease, unspecified; F02.81 Dementia in other diseases classified elsewhere, unspecified severity, with behavioral disturbance; N39.0 Urinary tract infection, site not specified; F41.9 Anxiety disorder, unspecified; H40.9 Unspecified glaucoma; Z90.89 Acquired absence of other organs; Z85.50 Personal history of malignant neoplasm of unspecified urinary tract organ; Z90.710 Acquired absence of both cervix and uterus; Z80.9 Family history of malignant neoplasm, unspecified; Z79.899 Other long term (current) drug therapy